=== PATIENT | female | born 2000 ===

== ENCOUNTER 2019-02-22 10:36 | Emergency (ER) | payer OTHER ==
[2019-02-22 10:41] VITALS: TEMP 97.8; O2SAT 100
--- NOTE | 2019-02-22 10:57 | C.PDOC ---
History Of Present Illness 19 year old female presents to the ED complaining of itchy rash to arms, torso and legs for 2 days. Denies use of new lotions, perfumes, new clothing, or new detergents. Reports he had a different type of rash on middle and ring finger two weeks ago that was treated by PMD with steroidal cream. States this rash is different because it is associated with itchiness and redness and is affecting other parts of the body. Denies fever, chills, bug bites, dizziness, headache, nausea, vomiting, or SOB. Time Seen by Provider: 02/22/19 10:51 Chief Complaint (Nursing): Allergic Reaction History Per: Patient History/Exam Limitations: no limitations Onset/Duration Of Symptoms: Days (2) Current Symptoms Are (Timing): Still Present Associated Symptoms: Skin Rash, Redness Past Medical History Reviewed: Historical Data, Nursing Documentation, Vital Signs Vital Signs: Last Vital Signs Temp 97.8 F 02/22/19 10:40 Pulse 108 H 02/22/19 10:40 Resp 20 02/22/19 10:40 BP 121/73 02/22/19 10:40 Pulse Ox 100 02/22/19 10:40 - Medical History PMH: No Chronic Diseases Surgical History: No Surg Hx Family History: States: No Known Family Hx - Social History Hx Alcohol Use: No Hx Substance Use: No - Immunization History Hx Tetanus Toxoid Vaccination: No Hx Influenza Vaccination: No Review Of Systems Constitutional: Negative for: Fever, Chills Respiratory: Negative for: Shortness of Breath Gastrointestinal: Negative for: Nausea, Vomiting Skin: Positive for: Rash Neurological: Negative for: Headache, Dizziness Physical Exam - Physical Exam Appears: Non-toxic, No Acute Distress Skin: Warm, Dry, Other (diffused erythematous macules and papules to arms, torso, legs and ears, some having target-like appearance ) Head: Atraumatic, Normacephalic Eye(s): bilateral: Normal Inspection, PERRL Ear(s): Bilateral: Normal Nose: Normal Oral Mucosa: Moist Tongue: Normal Appearing, No Swelling Lips: Normal Appearing, No Swelling Teeth: Normal Dentition Gingiva: Normal Appearing Throat: Normal, No Erythema Neck: Normal ROM, Supple Chest: Symmetrical Cardiovascular: Rhythm Regular Respiratory: Normal Breath Sounds, No Rales, No Rhonchi, No Wheezing Neurological/Psych: Oriented x3, Normal Speech, Normal Motor, Normal Sensation Gait: Steady ED Course And Treatment - Laboratory Results Result Diagrams: 02/22/19 12:26 02/22/19 12:26 O2 Sat by Pulse Oximetry: 100 (RA) Pulse Ox Interpretation: Normal Medical Decision Making Medical Decision Making: Plan: - Benadryl 50mg PO - Pepcid 20mg PO - Prednisolone 60mg PO - Labs -ESR slightly elevated (26) - RPR -nonreactive - Monospot- negative Patient is resting comfortably, has no shortness of breath, has no intra-oral swelling, no stridor. Patient notes that pruritus has improved. Patient was advised to avoid potential allergens, and to follow up with Junior Legal Secretary in 1-2 days. Patient verbalizes understanding and is in agreement with plan. Patient is stable for discharge. Disposition Counseled Patient/Family Regarding: Studies Performed, Diagnosis, Need For Followup, Rx Given - Disposition Referrals: Gabe Troncoso DO [Doctor Osteopathy] - Landen Phillips MD [Staff Provider] - Biju Mejia Jr., MD [Medical Doctor] - María Castro PA [Physician Claims Collector] - Marvin Raymond MD [Non-Staff] - Orville Wynn MD [Staff Provider] - Dada Guillen MD [Staff Provider] - Disposition: HOME/ ROUTINE Disposition Time: 14:49 Condition: STABLE Additional Instructions: You must follow up with Dermatology tomorrow! Use meds as prescribed return to ED if symptoms worsen Prescriptions: DiphenhydrAMINE [Benadryl] 25 mg PO BID #14 cap Famotidine [Pepcid] 20 mg PO DAILY #14 tab predniSONE [predniSONE Tab] 60 mg PO DAILY #15 tab Instructions: Skin Rash (DC), Erythema Multiforme (DC) Forms: [employer] (Nepali) - Clinical Impression Clinical Impression: Erythema multiforme, Skin rash - PA / READY TO WEAR DEPARTMENT MANAGER / Resident Statement / has reviewed & agrees with the documentation as recorded. - Scribe Statement The provider has reviewed the documentation as recorded by the Scribe Nathalia Cortes All medical record entries made by the Scribe were at my direction and personally dictated by me. I have reviewed the chart and agree that the record accurately reflects my personal performance of the history, physical exam, medical decision making, and the department course for this patient. I have also personally directed, reviewed, and agree with the discharge instructions and disposition.
[2019-02-22 12:37] LABS: BASO % 0.2 % (0.0-2.0); EOS # 1.5 K/uL (0.0-0.7); EOS % 23.7 % (0.0-4.0); HEMOGLOBIN 12.6 g/dL (11.0-16.0); LYMPH # 0.9 K/uL (1.0-4.3); LYMPH % 14.6 % (20.0-40.0); MEAN CELL VOLUME 84.8 fL (81.0-99.0); MEAN CORPUSCULAR HEMOGLOBIN 28.5 pg (27.0-31.0); MEAN CORPUSCULAR HGB CONC 33.6 g/dL (33.0-37.0); MEAN PLATELET VOLUME 9.1 fL (7.2-11.7); MONO # 0.4 K/uL (0.0-0.8); MONO % 6.9 % (0.0-10.0); NEUT # 3.4 K/uL (1.8-7.0); NEUT % 54.6 % (50.0-75.0); PLATELET COUNT 255 K/uL (130-400); RBC 4.42 Mil/uL (3.80-5.20); RED CELL DISTRIBUTION WIDTH 13.6 % (11.5-14.5); WHITE BLOOD COUNT 6.1 K/uL (4.8-10.8)
[2019-02-22 12:56] LABS: ALB/GLOB RATIO 1.4 (1.0-2.1); ALBUMIN 4.5 g/dL (3.5-5.0); ALT/SGPT 18 U/L (9-52); AST/SGOT 26 U/L (14-36); BLOOD UREA NITROGEN 10 mg/dL (7-17); CALCIUM 9.6 mg/dl (8.6-10.4); GFR NON-AFRICAN AMERICAN > 60
[2019-02-22 13:12] LABS: BANDS 1 % (0-2); EOSINOPHIL 22 % (0-4); LYMPHOCYTE 13 % (20-40); MONOCYTE 7 % (0-10); NEUTROPHIL 57 % (50-75); TOTAL CELLS COUNTED 100
[2019-02-22 13:13] LABS: PLATELET ESTIMATE NORMAL (NORMAL)
[2019-02-22 14:00] LABS: ERYTHROCYTE SEDIMENTATION RATE 26 mm/hr (0-20)
[2019-02-22 14:58] VITALS: BP 123/79; PULSE 78; RESP 16
== END 2019-02-22 14:57 | disposition home or self-care (01) ==
LOC: C.ER 10:36
DX: L51.9 Erythema multiforme, unspecified (principal); R21 Rash and other nonspecific skin eruption